=== PATIENT | male | born 1960 | race Caucasian/White ===

== ENCOUNTER 2025-04-22 10:02 | Day surgery (SDC) | payer BC, SELFPAY ==
[2025-04-22] VITALS (25 sets, daily range): BP systolic 101–127; BP diastolic 72–92; BMI 21.8
[2025-04-22] MEDS: NSS 1000 IV (12:10)
--- NOTE | 2025-04-22 12:22 | ITS.CL.ANGIO ---
Socket Puller - Angioplasty
Angioplasty
Procedure Report:
LEFT HEART CATHETERIZATION
Date of Procedure: April 22, 2025
Procedures performed:
1: Percutaneous coronary intervention of the left anterior descending artery with placement of a 3.5 x 12 mm [place] stent postdilated at high pressure with a 4.0 mm diameter noncompliant balloon
Primary Care Physician: ROMARIO Salmon
Primary Cracking Unit Operator: Dr. Santi Foster
INDICATION: The patient is a 64-year-old man who has a past medical history significant for interstitial pulmonary fibrosis and underwent a diagnostic cardiac catheterization in [facility] in January where a focal 70% proximal LAD lesion
which was IFR positive was found on cardiac catheterization. The patient has chronic exertional dyspnea and chest tightness. He is referred for PCI of the LAD given the possibility that this is playing a role in symptoms and evidence of
physiologic significance based on prior cath in January. He was pretreated with aspirin and Plavix.
ACCESS: The patient was prepped and draped in usual sterile fashion. A 6 Cuban sheath was placed in the right radial artery using the Seldinger over the wire technique.
HEMODYNAMIC FINDINGS (mmHg):
LV(s/d,EDP): 105/5, 10
Ao(s/d,m): 105/64, 82
ANGIOGRAPHIC FINDINGS:
Single-plane Left Ventriculography in FONTAINE Projection: Not performed. Normal LVEF by prior noninvasive imaging.
Coronary Angiography:
Dominance: Left
Left Main: Normal
Left Anterior Descending: The proximal LAD is mildly calcified with diffuse ostial 30 to 40% stenosis. This is followed by a focal 70% stenosis which has poststenotic dilatation. The remainder of the LAD is tortuous but widely patent with only
mild luminal irregularities and normal flow. The LAD wraps around the apex to feed a significant portion of the distal inferior wall.
Left Circumflex: The left circumflex is a large caliber dominant vessel that gives rise to a large bifurcating first obtuse marginal branch that is widely patent. The distal circumflex is medium caliber and has a smooth 30% stenosis after the large
OM1 takeoff. The distal vessel gives rise to a small caliber left-sided posterior left ventricular branch and small left-sided posterior descending artery.
Right Coronary: Small nondominant vessel that is widely patent.
Percutaneous Coronary Intervention (PCI): The patient was pretreated with aspirin and Plavix. Unfractionated heparin was given. A 6 Cuban XB 3.5 guiding catheter was used for the intervention. A Hi-Torque floppy wire was advanced across the
lesion without difficulty. Primary stenting using a 3.5 x 12 mm Zi stent was performed at 14 [place]. The stent was postdilated initially with a 3.75 mm followed by a 4.0 mm diameter noncompliant balloon at 16 [place]. Care was taken to stay within the
stented margins.
FINAL RESULT: 0% in-stent residual stenosis with an excellent angiographic result and VELMA-3 flow in all distal vessels.
Fluoroscopy Time (min): 6.7
Radiation Dose (mGy): 323
DAP (Gy.cm2): 15
Closure device: None. A TR band was applied for hemostasis at the right wrist.
Complications: None.
ASSESSMENT:
1: Successful PCI of the LAD with placement of a drug-eluting stent as described above.
2: Normal left ventricular filling pressures.
CONCLUSIONS and RECOMMENDATIONS:
1: Routine post drug-eluting stent medical therapy and monitoring. The patient will get aspirin 81 mg and clopidogrel 75 mg daily uninterrupted for a year followed by aspirin 81 mg daily indefinitely.
2: Medical therapy for coronary artery disease with clinical follow-up as scheduled with Dr. Foster.
Eduin Barba M.D.
--- NOTE | 2025-04-22 14:15 | PTCARENOTE ---
Dr Barba at pt bedside speaking to pt and pt's /son.
--- NOTE | 2025-04-22 14:20 | PTCARENOTE ---
Cardiac rehab at pt bedside speaking to pt and pt's /son.
--- NOTE | 2025-04-22 15:34 | W.PN.UPDATE ---
Update Note
Progress Note Update
64 yo WM s/p PCI LAD (same day). He denies cp, sob, vinay diet, voiding, amb w/o dizziness, EKG SR no ST changes, R rad site c/d/i TR band in place. He will continue DAPT ASA/Plavix. Cardiac rehab c/s. He will f/u Dr. Foster in 1 mo. He is for d/c
home after 5pm.
[2025-04-22] MEDS: MAALOX 30 ML PO (15:59)
--- NOTE | 2025-04-22 16:05 | PTCARENOTE ---
Addendum entered by Merari Anthony RN 04/22/25 16:26:
Pt states he feels better after maalox and chest discomfort is gone. Will continue to monitor.
Original Note:
Pt c/o chest discomfort described as 'gas' and rated as '3/10'. Pt also c/o 'belching'. VSS. Pt denies SOB and or nausea at this time. Michaelle Siddiqui NP made aware. Maalox ordered. Will administer maalox and continue to monitor.
--- NOTE | 2025-04-22 16:54 | PTCARENOTE ---
Pt states he feels comfortable to go home. Pt's also states she feels comfortable with pt going home. Pt denies chest discomfort and or SOB at this time. VSS. Michaelle Siddiqui [employer] made via [employer] aware and states pt ok for discharge.
[2025-04-23 08:03] LABS: ACT-LR - POC > 397 Seconds (116-155)
== END 2025-04-22 17:05 | disposition home or self-care (01) ==
LOC: CATH 10:02
PROVIDERS: ATTENDING PHYSICIAN Internal Medicine Interventional Cardiology; FAMILY PHYSICIAN Internal Medicine; OTHER PHYSICIAN Internal Medicine Cardiovascular Disease
DX: I25.10 Atherosclerotic heart disease of native coronary artery without angina pectoris (principal); J84.9 Interstitial pulmonary disease, unspecified; I25.84 Coronary atherosclerosis due to calcified coronary lesion; Z79.82 Long term (current) use of aspirin; Z79.02 Long term (current) use of antithrombotics/antiplatelets; R06.09 Other forms of dyspnea; R07.89 Other chest pain; R55 Syncope and collapse
CPT/HCPCS: 85347; 93005; C1725; C1769; C1874; C1887; C1894; C9600; Q9967